=== PATIENT | male | born 1965 | race Hispanic/Latino ===

== ENCOUNTER → 2017-09-03 | Outpatient (CLI) | payer OTHER ==
[~2017-09-03] MED LIST: AEC81 PO; ATOR20TA65 PO; CLOP75TA32 PO; PRAVASTATIN PO
== END | disposition home or self-care (01) ==
LOC: SHCH 13:09
PROVIDERS: ATTEND Internal Medicine Cardiovascular Disease
DX: I35.0 Nonrheumatic aortic (valve) stenosis (principal); Z95.2 Presence of prosthetic heart valve
CPT/HCPCS: 93306

== ENCOUNTER 2017-09-22 06:15 | Day surgery (SDC) | payer OTHER ==
[2017-09-18 10:40] VITALS: BP 149/66
[2017-09-18 11:04] LABS: POTASSIUM 4.4 mmol/L (3.5-5.1)
[2017-09-18 11:08] LABS: HEMATOCRIT 44.4 % (42-54); MEAN CORPUSCULAR HEMOGLOBIN 29.4 pg (27.0-33.0); MEAN CORPUSCULAR HGB CONC 34.2 g/dL (32.0-36.0); PLATELET COUNT (AUTO) 278 K/uL (130-400); RED BLOOD CELL COUNT(AUTO) 5.16 MIL/uL (4.50-6.20); RED CELL DISTRIBUTION WIDTH 13.3 % (11.0-15.5); WHITE BLOOD COUNT (AUTO) 6.2 K/uL (4.8-10.8)
[2017-09-18 11:22] LABS: INR 0.96 (0.85-1.15); PROTHROMBIN TIME 10.1 SEC (9.6-11.6)
[2017-09-18 11:45] LABS: APPEARANCE,URINE Clear (CLEAR); BILIRUBIN,URINE Negative (NEGATIVE); COLOR,URINE Yellow (YELLOW); GLUCOSE, URINE (UA) Negative (NEGATIVE); KETONES,URINE Negative (NEGATIVE); LEUKOCYTE ESTERASE ,URINE Negative (NEGATIVE); NITRATE,URINE Negative (NEGATIVE); OCCULT BLOOD,URINE Negative (NEGATIVE); PROTEIN,URINE Negative (NEGATIVE); UROBILINOGEN,URINE 0.2 mg/dL (0.2-1.0)
[2017-09-22] VITALS (11 sets, daily range): BP systolic 113–138; BP diastolic 56–76
[~2017-09-22] VITALS: Ht 167.6 cm; Wt 96.2 kg
[~2017-09-22 06:15] MED LIST changes: -PRAVASTATIN PO; +SODIUM CHLORIDE 0.9% 500ML 500 ML IV SCH
[2017-09-22] MEDS ORDERED: NITROGLYCERIN 5 MG/ML 10 ML VIAL IV ONE (07:42)
[2017-09-22] MEDS ORDERED: IOPAMIDOL-370 100 ML VIAL IV ONE (07:42)
[2017-09-22] MEDS ORDERED: LIDOCAINE HCL 2% 20ML ONE (07:42)
[2017-09-22] MEDS ORDERED: ISOVUE-370 50ML VIAL IV ONE ×2 (07:42→09:12)
[2017-09-22] MEDS ORDERED: SODIUM CHLORIDE 0.9% 1000ML 1,000 ML IV ONE (07:50)
[2017-09-22] MEDS ORDERED: HEPARIN SODIUM 1000UNIT/ML 10ML VIAL ONE (08:49)
[2017-09-22] MEDS ORDERED: IOPAMIDOL-370 75 ML VIAL IV ONE (09:12)
[2017-09-22] MEDS ORDERED: SODIUM CHLORIDE 0.9% 1000ML 1,000 ML IV SCH (09:45)
== END 2017-09-22 15:53 | disposition home or self-care (01) ==
LOC: DAH 06:15
PROVIDERS: ATTEND Internal Medicine Cardiovascular Disease
DX: I25.119 Atherosclerotic heart disease of native coronary artery with unspecified angina pectoris (principal); T82.0 Mechanical complication of heart valve prosthesis; I35.2 Nonrheumatic aortic (valve) stenosis with insufficiency; Z79.899 Other long term (current) drug therapy; E78.5 Hyperlipidemia, unspecified; I49.9 Cardiac arrhythmia, unspecified; Z95.2 Presence of prosthetic heart valve
CPT/HCPCS: 36415; 71045; 80048; 81003; 85027; 85610; 85730; 93460; 93567; 99152; 99153; A4606; C1760; C1893; C1894 ×2; J1644 ×2; J3490 ×2; J7030; Q9967 ×4

== ENCOUNTER 2018-12-20 14:36 | Emergency (ER) | payer OTHER ==
[~2018-12-20 14:36] MED LIST changes: -SODIUM CHLORIDE 0.9% 500ML 500 ML IV SCH
[2018-12-20] MEDS ORDERED: LIDOCAINE HCL 1% 20 ML VIAL ONE (15:19)
[2018-12-20] MEDS ORDERED: KETOROLAC TROMETHAMINE 60 MG/2 ML VIAL ONE (15:20)
[2018-12-20] MEDS ORDERED: LIDOCAINE 2%-EPI 1:200,000 20 ML VIAL IJ ONE (15:20)
[2018-12-20 17:33] LABS: GLUCOSE,BODY FLUID 91 mg/dL (1-40)
[2018-12-20 17:43] LABS: APPEARANCE BODY FLUID CLOUDY (CLEAR); BODY FLUID WBC 17580 /cu. mm.; COLOR,BODY FLUID YELLOW (LT YELLOW); SPECIMENTYPE,BODY FLUID SYNOVIAL; TOTAL VOLUME,BODY FLUID 30 mL
[2018-12-20 17:44] LABS: BODY FLUID RBC 214 /cu. mm.
[2018-12-20 17:59] LABS: BF LYMPHOCYTE 4 %; BF MONOCYTE 3 %
[2018-12-20 20:51] LABS: CRYSTALS, SYNOVIAL FLUID SEE SEPARATE REPORT
== END 2018-12-20 18:07 | disposition home or self-care (01) ==
LOC: EDH 14:36
DX: M13.862 Other specified arthritis, left knee (principal)
CPT/HCPCS: 20610; 73562; 82945; 84157; 84560; 89051; 89060; 96372; 99285; J1885; J3490

== ENCOUNTER → 2024-06-27 | Outpatient (CLI) | payer OTHER | END | disposition home or self-care (01) | LOC: SHCH 11:18 | PROVIDERS: ATTEND Internal Medicine Cardiovascular Disease | DX: Z95.3 Presence of xenogenic heart valve (principal) | CPT/HCPCS: 93306 ==

== ENCOUNTER → 2025-05-09 | Outpatient (CLI) | payer OTHER ==
[~2025-05-09] MED LIST changes: +IOHEXOL-350 75 ML VIAL IV ONE
--- NOTE | 2025-05-09 14:32 | HMCIMG ---
EXAM: CT Abdomen and Pelvis with IV contrast CLINICAL HISTORY: Periumbilic swelling, mass or lump TECHNIQUE: Axial computed tomography images of the abdomen and pelvis with intravenous contrast. CONTRAST: with intravenous contrast. COMPARISON: None provided. FINDINGS: LUNG BASES: Minimal bibasal atelectasis. No pleural effusion. LIVER: Unremarkable. GALLBLADDER AND BILE DUCTS: The gallbladder is surgically removed. No biliary ductal dilatation. PANCREAS: Unremarkable. SPLEEN: Unremarkable. ADRENAL GLANDS: Unremarkable. KIDNEYS, URETERS, AND BLADDER: The kidneys appear within normal limits. No hydronephrosis or hydroureter. No urinary calculi. STOMACH AND BOWEL: Colonic diverticulosis without evidence of diverticulitis. No bowel obstruction. No enteritis or colitis. APPENDIX: No evidence of acute appendicitis on CT examination. PERITONEUM: Approximately 42 mm gap defect at the umbilicus region through which herniation of omental fat is present, suggestive of umbilical hernia. No free fluid. No free air. LYMPH NODES: No lymphadenopathy. REPRODUCTIVE: Unremarkable as visualized. VASCULATURE: Mild atherosclerotic changes in the visualized arterial system in the form of fibrocalcified bands. No abdominal aortic aneurysm. BONES: Osseous degenerative changes. No aggressive appearing osseous lesion. No acute osseous pathology. ABDOMINAL WALL AND SOFT TISSUES: A scar along the anterior abdominal wall in the supraumbilical region is suggestive of postoperative changes. Approximately 18 mm gap defect in the left inguinal region through which herniation of omental fat is present, suggestive of an inguinal hernia.IMPRESSION: 1. Umbilical hernia with 42 mm defect and omental fat herniation. 2. Left inguinal hernia with 18 mm defect and omental fat herniation. /Steele
== END | disposition home or self-care (01) ==
LOC: RAH 08:53
PROVIDERS: ATTEND Internal Medicine Gastroenterology
DX: K40.90 Unilateral inguinal hernia, without obstruction or gangrene, not specified as recurrent (principal); K42.9 Umbilical hernia without obstruction or gangrene; K57.30 Diverticulosis of large intestine without perforation or abscess without bleeding; I70.90 Unspecified atherosclerosis; J98.11 Atelectasis; R19.05 Periumbilic swelling, mass or lump; Z90.49 Acquired absence of other specified parts of digestive tract
CPT/HCPCS: 74177; Q9967